=== PATIENT | female | born 1940 | race Caucasian/White ===

== ENCOUNTER 2016-10-31 10:01 | Outpatient (CLI) | payer OTHER ==
[~2016-10-31 10:01] MED LIST: ALDACTONE25 MG PO; ALLOPURINOL100 MG PO; ASPIRIN ADULT L81 MG PO; CARVEDILOL12.5 MG PO; COUMADIN6 MG PO; COZAAR25 MG PO; DEMADEX10 MG; ELIQUIS5 MG PO; FERROUS SULFAT325 M1 PO; HYDROXYZINE HCL25 MG PO; IMDUR30 MG PO; LAC-HYDRIN121; LEVOTHYROXINE100 MCG PO; LIPITOR80 MG PO; METFORMIN HCL1000 MG PO; MULTIVITAMIN1 TAB PO; NITROSTAT0.4 MG SL; PERCOCET1 TA4 PO; PRILOSEC40 MG PO; PROAIR RES108 MCG/AC IN; PROZAC10 MG PO; REQUIP2 MG PO; TRIANEX0.05 %; VENTOLIN HFA IN; VOLTAREN1 %; VOLTAREN1 % TOP
--- NOTE | 2016-10-31 11:21 | DIAGNOSTIC IMAGING REPORT ---
PROCEDURE: XR CHEST 2 VIEW INDICATION: SOB TECHNIQUE: PA and lateral views. COMPARISON: Chest 04/15/2016 FINDINGS: There is cardiomegaly, pulmonary vascular congestion and right pleural effusion. IMPRESSION: 1. CHF 2. Results were called to Dr. Foster's office.
--- NOTE | 2016-10-31 11:36 | DIAGNOSTIC IMAGING REPORT ---
PROCEDURE: US VENOUS - RIGHT EXT INDICATION: EDEMA RT LEG TECHNIQUE: Duplex sonography of the deep venous system in the right lower extremity was performed. Compression and augmentation techniques were used. COMPARISON: None. FINDINGS: Each interrogated segment of deep vein from the common femoral vein into the calf veins demonstrates normal compressibility, augmentation and/or color Doppler flow without filling defect. No evidence of significant soft-tissue edema, soft-tissue mass or cyst. IMPRESSION: 1. No deep venous thrombosis in the right lower extremity.
== END 2016-10-31 23:00 | disposition home or self-care (01) ==
LOC: US SRH 10:01
DX: N18.9 Chronic kidney disease, unspecified (principal); I50.9 Heart failure, unspecified